=== PATIENT | female | born 1975 | race American Indian/Alaskan Native ===

== ENCOUNTER 2017-01-31 15:59 | Emergency (ER) | payer SELFPAY ==
[2017-01-31 17:01] LABS: Basophils % (Auto) 0.9 % (0.0-1.8); Eosinophils % (Auto) 1.8 % (0.0-4.3); Hematocrit 41.3 % (30.3-42.9); Hemoglobin 13.6 gm/dl (10.1-14.3); Mean Corpuscular HGB Conc 33 % (30-34); Mean Corpuscular Hemoglobin 27 pg (28-32); Mean Corpuscular Volume 83 fl (79-97); Platelet Count 330 K/mm3 (140-440); Red Blood Count 4.97 M/mm3 (3.65-5.03); Red Cell Distribution Width 15.7 % (13.2-15.2); White Blood Count 6.6 K/mm3 (4.5-11.0)
[2017-01-31 17:05] LABS: Anion Gap 17 mmol/L; BUN/Creatinine Ratio 17.14; Blood Urea Nitrogen 12 mg/dL (7-17); Carbon Dioxide 23 mmol/L (22-30); Glucose 94 mg/dL (65-100); Potassium 3.8 mmol/L (3.6-5.0); Sodium 139 mmol/L (137-145)
[2017-01-31] MEDS ORDERED: CATAPRES PO ONE (22:16)
--- NOTE | 2017-01-31 23:36 | Emergency Department Report ---
ED Headache HPI - General Chief Complaint: Headache Stated Complaint: DIZZY SPELLS Time Seen by Provider: 01/31/17 23:21 Source: patient Exam Limitations: no limitations - History of Present Illness Initial Comments: 41-year-old female here with complaint of headache and dizziness. Patient states she's had increasing blood pressure and headache over the last 3 days. She's never had elevations in her blood pressure before according to her. No other complaints no chest pain shortness of breath blurry vision nausea vomiting. Timing/Duration: other (3 days) Quality: moderate Head Injury Location: frontal Recent Head Trauma: no recent headache/trauma Associated Symptoms: denies: confusion, fatigue, facial pain, fever/chills, flushing, loss of consciousness, nausea/vomiting, nasal congestion, nasal drainage, numbness in legs/feet, rash, seizures, sinus infection, stiff neck, vision changes Allergies/Adverse Reactions: Allergies No Known Allergies Allergy (Verified 01/31/17 23:23) Home Medications: Ambulatory Orders amLODIPine [Norvasc] 5 mg PO DAILY #30 tab 02/01/17 ED Review of Systems ROS: Stated complaint: DIZZY SPELLS Other details as noted in HPI Comment: All other systems reviewed and negative Constitutional: denies: chills, fever Eyes: denies: eye pain, eye discharge, vision change ENT: denies: ear pain, throat pain Respiratory: denies: cough, shortness of breath, wheezing Cardiovascular: denies: chest pain, palpitations Endocrine: no symptoms reported Gastrointestinal: denies: abdominal pain, nausea, diarrhea Genitourinary: denies: urgency, dysuria, discharge Musculoskeletal: denies: back pain, joint swelling, arthralgia Skin: denies: rash, lesions Neurological: headache. denies: weakness, paresthesias Psychiatric: denies: anxiety, depression Hematological/Lymphatic: denies: easy bleeding, easy bruising ED Past Medical Hx - Past Medical History Hx GERD: Yes - Surgical History Past Surgical History?: Yes Additional Surgical History: BILATERAL KNEE SURGERY - Family History Family history: no significant - Social History Smoking Status: Current Every Day Smoker Substance Use Type: Alcohol - Medications Home Medications: Home Medications Medication Instructions Recorded Confirmed Last Taken Type amLODIPine [Norvasc] 5 mg PO DAILY #30 tab 02/01/17 Unknown Rx ED Physical Exam - General Limitations: No Limitations General appearance: alert, in no apparent distress - Head Head exam: Present: atraumatic, normocephalic - Eye Eye exam: Present: normal appearance - ENT ENT exam: Present: mucous membranes moist - Neck Neck exam: Present: normal inspection - Respiratory Respiratory exam: Present: normal lung sounds bilaterally. Absent: respiratory distress - Cardiovascular Cardiovascular Exam: Present: regular rate, normal rhythm. Absent: systolic murmur, diastolic murmur, rubs, gallop - GI/Abdominal GI/Abdominal exam: Present: soft, normal bowel sounds - Extremities Exam Extremities exam: Present: normal inspection - Back Exam Back exam: Present: normal inspection - Neurological Exam Neurological exam: Present: alert, oriented X3 - Psychiatric Psychiatric exam: Present: normal affect, normal mood - Skin Skin exam: Present: warm, dry, intact, normal color. Absent: rash ED Course Vital Signs 01/31/17 01/31/17 01/31/17 16:15 20:11 22:05 Temperature 98.5 F 98.1 F 98.3 F Pulse Rate 87 59 L 80 Respiratory 17 18 18 Rate Blood Pressure 152/104 174/109 Blood Pressure 183/114 [Right] O2 Sat by Pulse 97 99 98 Oximetry 01/31/17 01/31/17 01/31/17 22:20 22:53 23:00 Temperature Pulse Rate 61 57 L Respiratory 19 26 H Rate Blood Pressure 183/113 143/87 Blood Pressure [Right] O2 Sat by Pulse 99 Oximetry 01/31/17 01/31/17 23:15 23:41 Temperature 98.2 F Pulse Rate 57 L Respiratory 15 15 Rate Blood Pressure 148/88 Blood Pressure [Right] O2 Sat by Pulse 98 Oximetry ED Medical Decision Making - Lab Data Result diagrams: 01/31/17 16:36 01/31/17 16:36 Laboratory Results - last 24 hr 01/31/17 01/31/17 16:36 16:36 WBC 6.6 RBC 4.97 Hgb 13.6 Hct 41.3 MCV 83 MCH 27 L MCHC 33 RDW 15.7 H Plt Count 330 Lymph % (Auto) 40.0 H [place] % (Auto) 8.5 H Eos % (Auto) 1.8 Baso % (Auto) 0.9 Lymph # 2.6 [place] # 0.6 Eos # 0.1 Baso # 0.1 Seg Neutrophils % 48.8 Seg Neutrophils # 3.2 Sodium 139 Potassium 3.8 Chloride 103.0 Carbon Dioxide 23 Anion Gap 17 BUN 12 Creatinine 0.7 Estimated GFR > 60 BUN/Creatinine Ratio 17.14 Glucose 94 Calcium 9.0 - EKG Data -: EKG Interpreted by Me - EKG Data 01/31/17 23:34 Normal sinus rhythm rate of 74 normal axis normal intervals no ST-T wave changes - Medical Decision Making 41-year-old female here with headache in occasional dizziness. On arrival patient's blood pressure was 180/110. She was given single does of clonidine with improvement in her blood pressure and improvement in her symptoms. Her labs are unremarkable. She has a normal neurological exam. Plan to get a head CT given her neurological symptoms although I do not suspect that she has any intracranial pathology. We discussed the risks of long-term hypertension. Plan at start the patient on an oral hypertensive as an outpatient. Portions of this chart were dictated with dictation software. There may be dictation errors contained within this note. Critical care attestation.: If time is entered above; I have spent that time in minutes in the direct care of this critically ill patient, excluding procedure time. ED Disposition Clinical Impression: Hypertension, Headache Disposition: OP ADMIT IP TO THIS HOSP Is pt being admited?: No Condition: Stable Instructions: Hypertension (ED) Prescriptions: amLODIPine [Norvasc] 5 mg PO DAILY #30 tab Referrals: PRIMARY CARE, [Primary Care Provider] - 3-5 Days
--- NOTE | 2017-02-01 00:07 | Cat Scan Report ---
FINAL REPORT PROCEDURE: CT head without contrast. TECHNIQUE: Computerized tomography of the head was performed without contrast material. HISTORY: Headache, hypertension. COMPARISON: No prior studies are available for comparison. FINDINGS: The ventricles are normal in size. The saldana matter and white matter appear normal. There are no mass lesions. There is no intracranial hemorrhage. The calvarium appears intact. The mastoid air cells and visualized paranasal sinuses are well aerated. IMPRESSION: Normal study.
[2017-02-01 02:11] VITALS: BP 127/74
== END 2017-02-01 02:11 | disposition admitted as inpatient to this hospital (09) ==
LOC: EDSEX → ED 15:59
DX: I10 Essential (primary) hypertension (principal); K21.9 Gastro-esophageal reflux disease without esophagitis; F17.210 Nicotine dependence, cigarettes, uncomplicated
CPT/HCPCS: 36415; 70450; 80048; 85025; 93005; 93010; 99284